=== PATIENT | male | born 1975 | race Caucasian/White ===

== ENCOUNTER → 2016-09-19 | Outpatient (CLI) | payer BC ==
[~2016-09-19] MED LIST: AGM500T PO; AMOX1TAB12 PO; IBP200T PO; PANT20TA24 PO; PRED20TA PO; [UNRECOGNIZED DRUG - REMARK] PO
[2016-09-19 19:00] VITALS: BP 139/94
--- NOTE | 2016-09-19 19:00 | Urgent Care T Sheet Gen (E) ---
Intake General Temperature (Fahrenheit): 99.2 Pulse: 92 Blood Pressure Systolic: 139 Blood Pressure Diastolic: 94 (patient has a BP prescription he needs to cook pickled meat ) Respirations: 20 SPO2: 97 Description of Symptoms Patient presents with ear fullness, nasal congestion, MENDEZ and cough for the past few days. [place] the worst today. No fever. Been taking OTC cold meds without improvement. No history of seasonal allergies. History of Present Illness Allergies: Coded Allergies: Influenza Virus Vaccines (Verified Allergy, Unknown, RESPIRATORY DISTRESS , 03/31/16) No Known Allergies (Verified Allergy, Unknown, 08/25/15) Home Meds Active Scripts Amoxicillin/Clavulanate Potassium (Augmentin 875mg/125mg)1 Each Tablet1 Tab PO BID Infection #20 TAB Ref 0 Prov:DAMIEN TRINIDAD MD 03/31/16 Reported Medications [Bp Med-Unknown] No Conflict CheckUnknown Dose PO DAILY 03/31/16 Ibuprofen 200 Mg Tablet4 Tab PO NEEDED PRN PAIN Ref 0 03/31/16 Pantoprazole Sodium 20 Mg Tablet.dr20 Mg PO DAILY PRN HEARTBURN 03/31/16 Respiratory Constitutional Symptoms: No Fever, Malaise EENTM: Ear pain Nose Congestion Throat pain Respiratory: Cough Cardiovascular: No symptoms reported Gastrointestinal/Abdominal: No symptoms reported All Other Systems Reviewed Remaining Systems: All other systems reviewed with negative findings Past Ioxhqwf-Cqvjte-Uifxhr Hx Patient's Social History Alcohol Use: Past History Smoking Status: Current every day smoker Surgeries/Hospitalizations Hospitalization/Surgery Hx: denies sx Respiratory Respiratory History: Other, see comment Comment: childhood asthma Cardiovascular Cardiovascular History: Hypertension Reproductive System Sexually Transmitted Diseases: No Gastrointestinal GI/Endocrine History: GERD, Other, see comment Comment: celiac Diabetes Diabetes: No HEENT Impaired Vision: None Hearing Impaired: None Psychosocial Behavior Disorders: None Physical Exam Physical Exam General Appearance: WD/WN No apparent distress Eyes, Ears, Nose, Throat Ex: TM abnormal (R) (red) Pharyngeal erythema ( cobblestone appearance with PND) Other (red, swollen nasal turbinates with thick nasal drainage) Neck Exam: SuppleNo Lymphadenopathy Respiratory Exam: Lungs clear Normal breath sounds Cardiovascular Exam: Regular rate, rhythm Departure Urgent Care Impression Impression: Primary Impression: Right otitis media Qualified Code: H66.001 - Acute suppurative otitis media without spontaneous rupture of ear drum, right ear Departure Disposition: 01 HOME OR SELF-CARE Condition: Stable Referrals: Julio Cesar Molina MD (PCP) Additional Instructions: I have started the patient on Augmentin and Prednisone for treatment No OTC cold meds as they are increasing his BP No NSAIDs while on steroid Rest. Fluids Return as needed Patient understands DC instructions. All questions were answered. Scripts Prednisone 20 Mg [id number] Mg PO DAILY #3 TAB Prov:SHIVAM BLANK 09/19/16 Amoxicillin/Clavulanate Potassium (Augmentin 500mg/125mg)1 Each Tablet1 Each PO BID Infection #14 TAB Ref 0 Prov:SHIVAM BLANK 09/19/16 End of report . SHIVAM BLANK Sep 19, 2016 19:00
== END ==
LOC: MHUC 18:41
PROVIDERS: ATTEND Physician Assistant
DX: H66.001 Acute suppurative otitis media without spontaneous rupture of ear drum, right ear (principal)
CPT/HCPCS: 99213